=== PATIENT | female | born 1975 | race Caucasian/White ===

== ENCOUNTER 2017-11-21 16:25 | Emergency (ER) | payer BC ==
[2017-11-21 16:46] VITALS: O2SAT 98
[2017-11-21] MEDS ORDERED: OXYCODONE-ACETAMINOPHEN 10-325 PO STA (16:48)
[2017-11-21] MEDS ORDERED: OXYCODONE-ACETAMINOPHEN 10-325 ONE (16:53)
--- NOTE | 2017-11-21 16:57 | ERPHSYRPT ---
- History of Present Illness Time Seen by Provider: 11/21/17 16:38 Source: patient Patient Subjective Stated Complaint: PT REPORTS BILATERAL LOWER EXTREMITIES- STATES THAT SHE FEELS IT IS CELLULITIS-REPORTS OPENED AREA TO RIGHT LOWER EXTREMITY Triage Nursing Assessment: PT PINK WARM ET [id number] QUESTIONS [id number] AREA WITH DRAINAGE NOTED TO RIGHT LOWER LEG- PT AMBULATORY TO ED WITH NO DIFFICUTLY Physician History: CC: leg redness Hx: 42 y/o diabetic pt of KLEBER Ortiz. She was treated last month for cellulitis using keflex followed by bactrim. She had negative venous and arterial doppler ultrasounds. 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 Now has return of redness to both legs. The right leg pretibial area has blisters with clear drng. Last tetanus vaccine up to date. She has Type 2 diabetes. She tries to elevate feet when possible. Swelling is usually better in AM's. Occurred: days ago Lower Extremities Pain: leg: bilateral Allergies/Adverse Reactions: Penicillins Allergy (Verified 11/21/17 16:47) Hives acetaminophen [From Lortab] Adverse Reaction (Verified 11/21/17 16:47) Nausea and Vomiting hydrocodone [From Lortab] Adverse Reaction (Verified 11/21/17 16:47) Nausea and Vomiting lisinopril Adverse Reaction (Verified 11/21/17 16:47) Cough Home Medications: Furosemide 20 mg [Lasix 20 mg] 20 mg PO BID 07/05/17 [History] Gabapentin [Neurontin] 900 mg PO TID 07/05/17 [History] Insulin Glargine,Hum.rec.anlog [Lantus Solostar] 50 unit SQ 07/05/17 [History ] Losartan Potassium 50 mg [Cozaar 50 MG] 50 mg PO DAILY 07/05/17 [History] Metformin HCl 500 mg [Glucophage 500 MG] 1,000 mg PO BID 07/05/17 [History ] Nifedipine [Procardia Xl] 90 mg PO DAILY 07/05/17 [History] Rosuvastatin Calcium [Crestor] 5 mg PO DAILY 07/05/17 [History] Vitamin B Complex [Super B Complex] 1 each PO HS 07/05/17 [History] Sitagliptin Phosphate [Januvia] 100 mg PO DAILY 11/21/17 [History] Hx Tetanus, Diphtheria Vaccination/Date Given: Yes (2013) Hx Influenza Vaccination/Date Given: No Hx Pneumococcal Vaccination/Date Given: No Immunizations Up to Date: Yes - Review of Systems Constitutional: Malaise, No Fever, No Chills Eyes: No Symptoms Ears, Nose, & Throat: No Symptoms Respiratory: No Cough, No Dyspnea Cardiac: Edema, No Chest Pain Abdominal/Gastrointestinal: No Abdominal Pain Neurological: Parasthesia (neuropathy), No Focal Weakness All Other Systems: Reviewed and Negative - Past Medical History Pertinent Past Medical History: Yes Neurological History: Peripheral Neuropathy ENT History: No Pertinent History Cardiac History: Hypertension Respiratory History: No Pertinent History Endocrine Medical History: Diabetes Type II Musculoskeletal History: No Pertinent History GI Medical History: GERD, Gallbladder Disease History: Other Psycho-Social History: No Pertinent History Female Reproductive Disorders: No Pertinent History Other Medical History: neuropathy - Past Surgical History Past Surgical History: Yes Neuro Surgical History: No Pertinent History Cardiac: No Pertinent History Respiratory: No Pertinent History Gastrointestinal: Cholecystectomy Genitourinary: No Pertinent History Musculoskeletal: No Pertinent History Female Surgical History: Other Other Surgical History: uterine ablation - Social History Smoking Status: Never smoker Exposure to second hand smoke: No Drug Use: none Patient Lives Alone: No - Female History Hx Last Menstrual Period: ABLASION Hx Now: No - Nursing Vital Signs Nursing Vital Signs: Initial Vital Signs Temperature 98.3 F 11/21/17 16:35 Pulse Rate 85 11/21/17 16:35 Respiratory Rate 20 11/21/17 16:35 Blood Pressure 150/90 11/21/17 16:35 O2 Sat by Pulse Oximetry 98 11/21/17 16:35 Pain Scale Pain Intensity 2 - Physical Exam General Appearance: alert, obese, other (pleasant lady) Eyes, Ears, Nose, Throat Exam: moist mucous membranes Neck Exam: normal inspection, non-tender, supple Cardiovascular/Respiratory Exam: normal breath sounds, regular rate/rhythm Gastrointestinal/Abdominal Exam: non-tender, soft Neuro/Tendon Exam: normal motor functions Mental Status Exam: alert, oriented x 3, cooperative Skin Exam: warm, dry SpO2 Interpretation: normal SpO2: 98 Oxygen Delivery: Room Air Comments: Both legs have lower extremity edema. Some blistering more pronounced with pretibial. Both have venous stasis changes with brauny edema. No calf tenderness. Some erythema worse on right. Pedial pulses present. Procedures - Additional Procedures Progress: Bilateral unna boots applied. Tolerate well. - Course Nursing assessment & vital signs reviewed: Yes Ordered Tests: Active Orders 24 hr Category Date Time Status Other ED Treatment STAT Care 11/21/17 16:48 Active CBC W DIFF Stat Lab 11/21/17 17:00 Completed CMP Stat Lab 11/21/17 17:00 Completed CULTURE,WOUND Stat Lab 11/21/17 17:00 Received HCG QUALITATIVE,SERUM Stat Lab 11/21/17 17:00 Completed Lactic Acid Stat Lab 11/21/17 16:47 Results Manual Differential NC Stat Lab 11/21/17 17:00 Completed Medication Summary Discontinued Medications Generic Name Dose Route Start Last Admin Trade Name Freq PRN Reason Stop Dose Admin Oxycodone/Acetaminophen 1 tab 11/21/17 16:48 11/21/17 16:54 Oxycodone-Acetaminophen 10-325 PO 11/21/17 16:49 1 tab STAT STA Administration Oxycodone/Acetaminophen Confirm 11/21/17 16:53 Oxycodone-Acetaminophen 10-325 Administered 11/21/17 16:54 Dose 1 tab .ROUTE .STK-MED ONE Lab/Rad Data: Laboratory Result Diagrams 11/21/17 17:00 11/21/17 17:00 Laboratory Results 11/21/17 11/21/17 11/21/17 Range/Units 17:00 17:00 17:00 WBC 8.8 (4.0-10.5) K/mm3 RBC 4.82 (4.1-5.4) M/mm3 Hgb 13.2 (12.0-16.0) gm/dl Hct 41.0 (35-47) % MCV 85.1 (78-100) fl MCH 27.4 (26-32) pg MCHC 32.2 (32-36) g/dl RDW 14.9 H (11.5-14.0) % Plt Count 275 (150-450) K/mm3 MPV 10.1 H (6-9.5) fl Sodium 138 (136-145) mEq/L Potassium 3.8 (3.5-5.1) mEq/L Chloride 101 (98-107) mEq/L Carbon Dioxide 26.7 (21-32) mEq/L Anion Gap 14.1 (5-15) MEQ/L BUN 15 (9-20) mg/dL Creatinine 0.75 (0.55-1.30) mg/dl Estimated GFR > 60 ML/MIN Glucose 220 H (70-110) MG/DL Lactic Acid (0.4-2.0) Calcium 9.0 (8.5-10.1) mg/dL Total Bilirubin 0.40 (0.2-1.0) mg/dL AST 13 L (15-37) U/L ALT 17 (12-78) U/L Alkaline Phosphatase 67 (46-116) U/L Serum Total Protein 7.9 (6.4-8.2) gm/dL Albumin 3.4 (3.4-5.0) g/dL Serum , Qual NEGATIVE (Negative) 11/21/17 Range/Units 16:47 WBC (4.0-10.5) K/mm3 RBC (4.1-5.4) M/mm3 Hgb (12.0-16.0) gm/dl Hct (35-47) % MCV (78-100) fl MCH (26-32) pg MCHC (32-36) g/dl RDW (11.5-14.0) % Plt Count (150-450) K/mm3 MPV (6-9.5) fl Sodium (136-145) mEq/L Potassium (3.5-5.1) mEq/L Chloride (98-107) mEq/L Carbon Dioxide (21-32) mEq/L Anion Gap (5-15) MEQ/L BUN (9-20) mg/dL Creatinine (0.55-1.30) mg/dl Estimated GFR ML/MIN Glucose (70-110) MG/DL Lactic Acid 3.1 H (0.4-2.0) Calcium (8.5-10.1) mg/dL Total Bilirubin (0.2-1.0) mg/dL AST (15-37) U/L ALT (12-78) U/L Alkaline Phosphatase (46-116) U/L Serum Total Protein (6.4-8.2) gm/dL Albumin (3.4-5.0) g/dL Serum , Qual (Negative) - Progress Progress Note: 11/21/17 16:55 She venous stasis needing compression and edema treatment. Will apply unna boots , Rx cleocin. To follow up tomorrow in office. May need to stop the nifedipine as well. Instr given. Counseled pt/family regarding: lab results, diagnosis, need for follow-up - Departure Time of Disposition: 17:53 Departure Disposition: Home Clinical Impression: Bilateral lower leg cellulitis, Venous stasis dermatitis of both lower extremities, Type 2 diabetes mellitus Condition: Fair Critical Care Time: No Referrals: JENAE ORTIZ [Primary Care Provider] - Instructions: Dependent Edema (DC), Cellulitis (Skin Infection), Adult (DC) Additional Instructions: See KLEBER Ortiz or Dr Karimi tomorrow for recheck. Elevate legs. Rx cleocin. Rx percocet. Discuss changing your nifedipine. Watch salt intake. You will need compression treatments. Prescriptions: Oxycodone/APAP 5 mg/325 mg [Percocet Tablet 5/325Mg] 1 tab PO Q6H PRN PRN # 10 tablet MDD 4 PRN Reason: Pain Clindamycin HCl 1 cap PO QID #40 capsule Saccharomyces Boulardii [Florastor] 250 mg PO BID #20 capsule
[2017-11-21 17:09] LABS: Lactic Acid 3.1 (0.4-2.0)
[2017-11-21 17:10] LABS: Granulocyte Absolute (ANC) 5.74 (1.4-6.9); Hemoglobin 13.2 gm/dl (12.0-16.0); Mean Cell Volume 85.1 fl (78-100); Mean Corpuscular Hemoglobin 27.4 pg (26-32); Mean Corpuscular Hgb Concent. 32.2 g/dl (32-36); Mean Platelet Volume 10.1 fl (6-9.5); Platelet Count 275 K/mm3 (150-450); Red Blood Count 4.82 M/mm3 (4.1-5.4); Red Cell Distribution Width 14.9 % (11.5-14.0); White Blood Count 8.8 K/mm3 (4.0-10.5)
[2017-11-21 17:29] VITALS: BP 121/59; PULSE 76
[2017-11-21 17:46] LABS: ALBUMIN 3.4 g/dL (3.4-5.0); ALKALINE PHOSPHATASE 67 U/L (46-116); ANION GAP 14.1 MEQ/L (5-15); BLOOD UREA NITROGEN 15 mg/dL (9-20); CHLORIDE 101 mEq/L (98-107); Carbon Dioxide 26.7 mEq/L (21-32); Creatinine 1 0.75 mg/dl (0.55-1.30); EST GLOMERULAR FILTRATION RATE > 60 ML/MIN; Glucose 220 MG/DL (70-110); Potassium 3.8 mEq/L (3.5-5.1); SGOT/AST 13 U/L (15-37); SGPT/ALT 17 U/L (12-78); SODIUM 138 mEq/L (136-145); Total Protein 7.9 gm/dL (6.4-8.2)
[2017-11-22 01:44] LABS: Eosinophil 1 % (0.00-3.0); Lymphocytes 20 % (24-44); Monocyte 5 % (0.0-12.0); Neutrophils 74 % (36.0-66.0); Platelet Estimate NORMAL (NORMAL); Total Cells Counted 100
== END 2017-11-21 18:10 | disposition home or self-care (01) ==
LOC: ED 16:25
DX: L03.116 Cellulitis of left lower limb (principal); L03.115 Cellulitis of right lower limb; I87.2 Venous insufficiency (chronic) (peripheral); E11.9 Type 2 diabetes mellitus without complications; Z79.899 Other long term (current) drug therapy
CPT/HCPCS: 36415; 80053; 83605; 84703; 85025; 87070; 87077; 87186; 99283; 99284; A9270-GY

== ENCOUNTER 2018-05-22 18:10 | Emergency (ER) | payer BC, SELFPAY ==
[2018-05-22 18:31] LABS: Lactic Acid 3.9 (0.4-2.0)
[2018-05-22] MEDS ORDERED: Sodium Chloride 0.9% 1000 ML 1,000 ML ONE ×2 (18:32→20:56)
[2018-05-22] MEDS: Sodium Chloride 0.9% 1000 ML 1,000 ML IV STA ×2 (18:33→20:57)
[2018-05-22 18:38] LABS: BASOPHIL % 0.8 % (0.0-0.4); Basophil (Absolute #) 0.09 (0-0.4); Eosinophil % 2.5 % (0.00-5.0); Eosinophil (Absolute #) 0.27 (0-0.5); Granulocyte Absolute (ANC) 6.77 (1.4-6.9); Granulocytes % 64.1 % (36.0-66.0); Hematocrit 39.7 % (35-47); Hemoglobin 13.2 gm/dl (12.0-16.0); Lymphocyte (Absolute #) 2.63 (1.0-4.6); Lymphocytes % 24.8 % (24.0-44.0); Mean Cell Volume 84.6 fl (78-100); Mean Corpuscular Hemoglobin 28.1 pg (26-32); Mean Corpuscular Hgb Concent. 33.2 g/dl (32-36); Mean Platelet Volume 9.9 fl (6-9.5); Monocyte (Absolute #) 0.83 (0.0-1.3); Monocytes % 7.8 % (0.0-12.0); Platelet Count 301 K/mm3 (150-450); Red Blood Count 4.69 M/mm3 (4.1-5.4); Red Cell Distribution Width 15.3 % (11.5-14.0); White Blood Count 10.6 K/mm3 (4.0-10.5)
--- NOTE | 2018-05-22 18:49 | ERPHSYRPT ---
- History of Present Illness Historian: patient Exam Limitations: no limitations Patient Subjective Stated Complaint: pt here for abd pain for a wek after lifting 24 pack of water Triage Nursing Assessment: pt alert, walked in, resp easy, skin w/d/p. abd soft. Timing/Duration: week(s) (one week ago) Activities at Onset: none Quality: aching Abdominal Pain Onset Location: suprapubic Pain Radiation: no radiation Severity of Pain-Max: moderate Severity of Pain-Current: moderate Modifying Factors: Improves With: nothing Associated Symptoms: denies symptoms Hx Tetanus, Diphtheria Vaccination/Date Given: Yes (2013) Hx Influenza Vaccination/Date Given: No Hx Pneumococcal Vaccination/Date Given: No Immunizations Up to Date: Yes <QUENTIN ROSALES - Last Filed: 05/22/18 18:59> <SWATI ARDON - Last Filed: 05/22/18 22:01> - History of Present Illness Time Seen by Provider: 05/22/18 18:47 Physician History: 43-year-old female came to the emergency room with complaining of lower abdominal pain which started approximately 5 days ago while she was speaking of 24 packs of water bottles. Patient pain got worse today, so she came to the emergency room. Patient denies any nausea, vomiting, diarrhea, constipation or any urinary trouble, or fever or chills. Patient is diabetic, insulin-requiring , as well as patient is also taking blood pressure medication for her high blood pressure. She denies this type of abdominal pain before. (QUENTIN ROSALES ) Allergies/Adverse Reactions: codeine Allergy (Verified 05/22/18 18:21) Penicillins Allergy (Verified 11/21/17 16:47) Hives acetaminophen [From Lortab] Adverse Reaction (Verified 11/21/17 16:47) Nausea and Vomiting hydrocodone [From Lortab] Adverse Reaction (Verified 11/21/17 16:47) Nausea and Vomiting lisinopril Adverse Reaction (Verified 11/21/17 16:47) Cough Home Medications: Furosemide 20 mg [Lasix 20 mg] 20 mg PO BID 07/05/17 [History] Gabapentin [Neurontin] 900 mg PO TID 07/05/17 [History] Insulin Glargine,Hum.rec.anlog [Lantus Solostar] 50 unit SQ HS 07/05/17 [History ] Losartan Potassium 50 mg [Cozaar 50 MG] 50 mg PO DAILY 07/05/17 [History] Metformin HCl 500 mg [Glucophage 500 MG] 1,000 mg PO BID 07/05/17 [History ] Nifedipine [Procardia Xl] 90 mg PO DAILY 07/05/17 [History] Rosuvastatin Calcium [Crestor] 5 mg PO DAILY 07/05/17 [History] Vitamin B Complex [Super B Complex] 1 each PO HS 07/05/17 [History] Sitagliptin Phosphate [Januvia] 100 mg PO DAILY 11/21/17 [History] - Review of Systems Constitutional: No Fever, No Chills Eyes: No Symptoms Ears, Nose, & Throat: No Symptoms Respiratory: No Cough, No Dyspnea Cardiac: No Chest Pain, No Edema, No Syncope Abdominal/Gastrointestinal: No Abdominal Pain, No Nausea, No Vomiting, No Diarrhea Genitourinary Symptoms: No Dysuria Musculoskeletal: No Back Pain, No Neck Pain Skin: No Rash Neurological: No Dizziness, No Focal Weakness, No Sensory Changes Psychological: No Symptoms Endocrine: No Symptoms All Other Systems: Reviewed and Negative <CONNIE,QUENTIN - Last Filed: 05/22/18 18:59> - Past Medical History Pertinent Past Medical History: Yes Neurological History: Peripheral Neuropathy ENT History: No Pertinent History Cardiac History: Hypertension Respiratory History: No Pertinent History Endocrine Medical History: Diabetes Type II Musculoskeletal History: No Pertinent History GI Medical History: GERD, Gallbladder Disease History: Other Psycho-Social History: No Pertinent History Female Reproductive Disorders: No Pertinent History Other Medical History: neuropathy - Past Surgical History Past Surgical History: Yes Neuro Surgical History: No Pertinent History Cardiac: No Pertinent History Respiratory: No Pertinent History Gastrointestinal: Cholecystectomy Genitourinary: No Pertinent History Musculoskeletal: No Pertinent History Female Surgical History: Other Other Surgical History: uterine ablation - Social History Smoking Status: Never smoker Exposure to second hand smoke: Yes Drug Use: none Patient Lives Alone: No - Female History Hx Last Menstrual Period: post Hx Now: No <CONNIE,QUENTIN - Last Filed: 05/22/18 18:59> - Physical Exam General Appearance: no apparent distress, alert Eye Exam: PERRL/EOMI, eyes nml inspection Ears, Nose, Throat Exam: normal ENT inspection, pharynx normal, moist mucous membranes Neck Exam: normal inspection, non-tender, supple, full range of motion Respiratory Exam: normal breath sounds, lungs clear, No respiratory distress Cardiovascular Exam: regular rate/rhythm, normal heart sounds Gastrointestinal/Abdomen Exam: soft, No tenderness, No mass Back Exam: normal inspection, normal range of motion, No CVA tenderness, No vertebral tenderness Extremity Exam: normal inspection, normal range of motion, pelvis stable Neurologic Exam: alert, oriented x 3, cooperative, normal mood/affect, nml cerebellar function, sensation nml, No motor deficits Skin Exam: normal color, warm, dry SpO2: 97 Oxygen Delivery: Room Air <CONNIE,QUENTIN - Last Filed: 05/22/18 18:59> - Nursing Vital Signs Nursing Vital Signs: Initial Vital Signs Temperature 97.0 F 05/22/18 18:16 Pulse Rate 114 H 05/22/18 18:16 Respiratory Rate 16 05/22/18 18:16 Blood Pressure 128/72 05/22/18 18:16 O2 Sat by Pulse Oximetry 97 05/22/18 18:16 Pain Scale Pain Intensity 7 - Course Nursing assessment & vital signs reviewed: Yes <CONNIE,QUENTIN - Last Filed: 05/22/18 18:59> Ordered Tests: Active Orders 24 hr Category Date Time Status ABDOMEN AND PELVIS W CONTRAST [CT] Stat Exams 05/22/18 19:39 Taken AMYLASE Stat Lab 05/22/18 18:20 Completed CBC W DIFF Stat Lab 05/22/18 18:20 Completed CMP Stat Lab 05/22/18 18:20 Completed Lactic Acid Stat Lab 05/22/18 18:26 Completed Lactic Acid Stat Lab 05/22/18 20:36 Results UA W/RFX UR CULTURE Stat Lab 05/22/18 18:20 Uncollected Medication Summary Discontinued Medications Generic Name Dose Route Start Last Admin Trade Name Freq PRN Reason Stop Dose Admin Ciprofloxacin 500 mg 05/22/18 21:54 Cipro 500 Mg PO 05/22/18 21:55 STAT ONE Sodium Chloride 1,000 mls @ 999 mls/hr 05/22/18 18:20 05/22/18 19:52 Sodium Chloride 0.9% 1000 Ml IV 05/22/18 19:20 Infused .Q1H1M STA Infusion Sodium Chloride Confirm 05/22/18 18:32 Sodium Chloride 0.9% 1000 Ml Administered 05/22/18 18:33 Dose 1,000 mls @ ud .ROUTE .STK-MED ONE Sodium Chloride 1,000 mls @ 999 mls/hr 05/22/18 20:46 05/22/18 20:57 Sodium Chloride 0.9% 1000 Ml IV 05/22/18 21:46 999 mls/hr .Q1H1M STA Administration Sodium Chloride Confirm 05/22/18 20:56 Sodium Chloride 0.9% 1000 Ml Administered 05/22/18 20:57 Dose 1,000 mls @ ud .ROUTE .STK-MED ONE Metronidazole 500 mg 05/22/18 21:54 Flagyl 500 Mg PO 05/22/18 21:55 STAT ONE Lab/Rad Data: Laboratory Result Diagrams 05/22/18 18:20 05/22/18 18:20 Laboratory Results 05/22/18 05/22/18 05/22/18 Range/Units 20:36 18:26 18:20 WBC (4.0-10.5) K/mm3 RBC (4.1-5.4) M/mm3 Hgb (12.0-16.0) gm/dl Hct (35-47) % MCV (78-100) fl MCH (26-32) pg MCHC (32-36) g/dl RDW (11.5-14.0) % Plt Count (150-450) K/mm3 MPV (6-9.5) fl Gran % (36.0-66.0) % Eos # (Auto) (0-0.5) Absolute Lymphs (auto) (1.0-4.6) Absolute Monos (auto) (0.0-1.3) Lymphocytes % (24.0-44.0) % Monocytes % (0.0-12.0) % Eosinophils % (0.00-5.0) % Basophils % (0.0-0.4) % Absolute Granulocytes (1.4-6.9) Basophils # (0-0.4) Sodium 137 (137-145) mmol/L Potassium 3.9 (3.5-5.1) mmol/L Chloride 98 (98-107) mmol/L Carbon Dioxide 25 (22-30) mmol/L Anion Gap 18.4 H (5-15) MEQ/L BUN 11 (7-17) mg/dL Creatinine 0.64 (0.52-1.04) mg/dL Estimated GFR > 60.0 ML/MIN Glucose 408 H (74-106) mg/dL Lactic Acid 3.0 H 3.9 H (0.4-2.0) Calcium 9.8 (8.4-10.2) mg/dL Total Bilirubin 0.40 (0.2-1.3) mg/dL AST 23 (14-36) U/L ALT 34 (0-35) U/L Alkaline Phosphatase 114 (38-126) U/L Serum Total Protein 7.9 (6.3-8.2) g/dL Albumin 4.5 (3.5-5.0) g/dL Amylase 41 (30-110) U/L 05/22/18 Range/Units 18:20 WBC 10.6 H (4.0-10.5) K/mm3 RBC 4.69 (4.1-5.4) M/mm3 Hgb 13.2 (12.0-16.0) gm/dl Hct 39.7 (35-47) % MCV 84.6 (78-100) fl MCH 28.1 (26-32) pg MCHC 33.2 (32-36) g/dl RDW 15.3 H (11.5-14.0) % Plt Count 301 (150-450) K/mm3 MPV 9.9 H (6-9.5) fl Gran % 64.1 (36.0-66.0) % Eos # (Auto) 0.27 (0-0.5) Absolute Lymphs (auto) 2.63 (1.0-4.6) Absolute Monos (auto) 0.83 (0.0-1.3) Lymphocytes % 24.8 (24.0-44.0) % Monocytes % 7.8 (0.0-12.0) % Eosinophils % 2.5 (0.00-5.0) % Basophils % 0.8 (0.0-0.4) % Absolute Granulocytes 6.77 (1.4-6.9) Basophils # 0.09 (0-0.4) Sodium (137-145) mmol/L Potassium (3.5-5.1) mmol/L Chloride (98-107) mmol/L Carbon Dioxide (22-30) mmol/L Anion Gap (5-15) MEQ/L BUN (7-17) mg/dL Creatinine (0.52-1.04) mg/dL Estimated GFR ML/MIN Glucose (74-106) mg/dL Lactic Acid (0.4-2.0) Calcium (8.4-10.2) mg/dL Total Bilirubin (0.2-1.3) mg/dL AST (14-36) U/L ALT (0-35) U/L Alkaline Phosphatase (38-126) U/L Serum Total Protein (6.3-8.2) g/dL Albumin (3.5-5.0) g/dL Amylase (30-110) U/L <QUENTIN ROSALES - Last Filed: 05/22/18 18:59> - Progress Progress: improved, re-examined Discussed with : Sachi Counseled pt/family regarding: lab results, diagnosis, need for follow-up, rad results <SWATI ARDON - Last Filed: 05/22/18 22:01> - Progress Progress Note: 05/22/18 21:56 PT STATES ABD PAIN STILL PRESENT BUT IMPROVED. I EVALUATED HER LEGS AND SHE HAS BILAT CHRONIC VENOUS STASIS DZ WITH MILD REDNESS. WILL GIVE PT RX FOR CIPRO AND FLAGYL TO COVER BOTH HER LEG ISSUES AND HER ABD PAIN WITH ASSOCIATED MILDLY ELEVATED WBC AND LACTIC ACID LEVELS (SWATI ARDON) <QUENTIN ROSALES - Last Filed: 05/22/18 18:59> - Departure Time of Disposition: 21:58 Departure Disposition: Home Critical Care Time: No <SWATI ARDON - Last Filed: 05/22/18 22:01> - Departure Clinical Impression: Abdominal pain, Venous stasis of both lower extremities, Leukocytosis, unspecified Condition: Stable Referrals: VAISHALI HINOJOSA [Primary Care Provider] - Additional Instructions: DRINK PLENTY OF FLUIDS. FOLLOW UP WITH DR. HINOJOSA TOMORROW FOR FURTHER MANAGEMENT Prescriptions: Ciprofloxacin [Cipro 500 MG] 500 mg PO BID #14 tablet Metronidazole 500 mg [Flagyl 500 MG] 500 mg PO TID #21 tablet
[2018-05-22 18:53] LABS: ALBUMIN 4.5 g/dL (3.5-5.0); ALKALINE PHOSPHATASE 114 U/L (38-126); AMYLASE 41 U/L (30-110); ANION GAP 18.4 MEQ/L (5-15); BLOOD UREA NITROGEN 11 mg/dL (7-17); CHLORIDE 98 mmol/L (98-107); Calcium 9.8 mg/dL (8.4-10.2); Carbon Dioxide 25 mmol/L (22-30); Creatinine 1 0.64 mg/dL (0.52-1.04); Glucose 408 mg/dL (74-106); Potassium 3.9 mmol/L (3.5-5.1); SGOT/AST 23 U/L (14-36); SODIUM 137 mmol/L (137-145); Total Protein 7.9 g/dL (6.3-8.2)
[2018-05-22 19:00] LABS: SGPT/ALT 34 U/L (0-35)
[2018-05-22] MEDS ORDERED: Cipro 500 MG ONE (21:57)
[2018-05-22] MEDS ORDERED: Flagyl 500 MG ONE (21:57)
[2018-05-22] MEDS: Cipro 500 MG PO ONE (21:58)
[2018-05-22] MEDS: Flagyl 500 MG PO ONE (21:58)
[2018-05-22 22:08] VITALS: BP 128/77; PULSE 90; O2SAT 94
--- NOTE | 2018-05-23 08:49 | XRAY ---
Indication: Lower abdominal pain and elevated WBC. Multiple contiguous axial images obtained through the abdomen and pelvis using 80 cc Isovue 370 contrast only. Comparison: None Lung bases are clear. Heart is not enlarged. Stomach is distended with food. Noncontrasted stomach and bowel loops appear nonobstructed. Normal appendix. Mild diffuse scattered colonic fecal debris throughout. There are bilateral Essure contraceptive devices. 2.4 cm right ovary cyst. No free fluid/air. Endometrial cavity of the uterus is fluid-filled with anatomic variant for septate uterus. Mild fatty hepatomegaly measuring 20 cm. Spleen is also enlarged measuring 14 cm in greatest axial dimension. Previous cholecystectomy. 1.4 cm left renal cortical cyst. Remaining liver, pancreas, spleen, adrenal glands, kidneys, ureters, bladder, uterus, and aorta appear unremarkable. Small centimeter/subcentimeter periaortic nodes none pathologically enlarged. Osseous structures intact. Moderate-sized fatty umbilical hernia. Impression: 1. Endometrial cavity fluid, septate uterus, and dominant right ovary cyst. Pelvic sonogram may yield further information if clinically warranted. 2. Fatty liver and hepatosplenomegaly. 3. Fecal stasis without obstruction. 4. Left renal cyst and fatty umbilical hernia. Comment: Preliminary interpretation was made by [facility]. No critical discrepancy. CT DI 22.92
== END 2018-05-22 22:10 | disposition home or self-care (01) ==
LOC: ED 18:10
DX: R10.30 Lower abdominal pain, unspecified (principal); I87.8 Other specified disorders of veins; D72.829 Elevated white blood cell count, unspecified; G62.9 Polyneuropathy, unspecified; I10 Essential (primary) hypertension; E11.9 Type 2 diabetes mellitus without complications; Z79.4 Long term (current) use of insulin; K21.9 Gastro-esophageal reflux disease without esophagitis; Z79.899 Other long term (current) drug therapy; X50.0XXA Overexertion from strenuous movement or load, initial encounter
CPT/HCPCS: 36000; 36415; 74177; 80053; 82150; 83605; 85025; 96360; 96361; 99284; A9270-GY

== ENCOUNTER 2019-07-10 19:14 | Emergency (ER) | payer BC ==
[2019-07-10 19:37] VITALS: O2SAT 98
--- NOTE | 2019-07-10 19:46 | ERPHSYRPT ---
- History of Present Illness Time Seen by Provider: 07/10/19 19:46 Source: patient Exam Limitations: no limitations Method of Injury: other (ingrown toenail, right great toe) Occurred: last week Quality: constant Severity of Pain-Max: mild Severity of Pain-Current: mild Lower Extremities Pain: 1st toe: right (mild pain) Modifying Factors: Improves With: movement (worsens pain) Associated Symptoms: none Allergies/Adverse Reactions: codeine Allergy (Verified 05/22/18 18:21) Penicillins Allergy (Verified 11/21/17 16:47) Hives hydrocodone [From Lortab] Adverse Reaction (Verified 11/21/17 16:47) Nausea and Vomiting lisinopril Adverse Reaction (Verified 11/21/17 16:47) Cough Home Medications: Furosemide 20 mg [Lasix 20 mg] 40 mg PO BID 07/05/17 [History] Gabapentin [Neurontin] 900 mg PO TID 07/05/17 [History] Insulin Glargine,Hum.rec.anlog [Lantus Solostar] 50 unit SQ HS 07/05/17 [History ] Losartan Potassium 50 mg [Cozaar 50 MG] 50 mg PO DAILY 07/05/17 [History] Metformin HCl 500 mg [Glucophage 500 MG] 1,000 mg PO BID 07/05/17 [History ] Nifedipine [Procardia Xl] 30 mg PO DAILY 07/05/17 [History] Rosuvastatin Calcium [Crestor] 5 mg PO DAILY 07/05/17 [History] Vitamin B Complex [Super B Complex] 1 each PO HS 07/05/17 [History] Sitagliptin Phosphate [Januvia] 100 mg PO DAILY 11/21/17 [History] Amitriptyline HCl 25 mg [Elavil 25 mg] 25 mg PO HS 07/10/19 [History] Hx Tetanus, Diphtheria Vaccination/Date Given: Yes (2013) Hx Influenza Vaccination/Date Given: No Hx Pneumococcal Vaccination/Date Given: No - Review of Systems Constitutional: No Symptoms, No Fever, No Chills Eyes: No Symptoms Ears, Nose, & Throat: No Symptoms Respiratory: No Symptoms, No Cough, No Dyspnea Cardiac: No Symptoms, No Chest Pain, No Edema, No Syncope Abdominal/Gastrointestinal: No Symptoms, No Abdominal Pain, No Nausea, No Vomiting, No Diarrhea Genitourinary Symptoms: No Symptoms, No Dysuria Musculoskeletal: Other (pain in area of right great toenail, some d/c), No Back Pain, No Neck Pain Skin: Cellulitis (very mild, area of right great toe), No Rash Neurological: No Symptoms, No Dizziness, No Focal Weakness, No Sensory Changes Psychological: No Symptoms Endocrine: No Symptoms All Other Systems: Reviewed and Negative - Past Medical History Pertinent Past Medical History: Yes Neurological History: Peripheral Neuropathy ENT History: No Pertinent History Cardiac History: Hypertension Respiratory History: No Pertinent History Endocrine Medical History: Diabetes Type II Musculoskeletal History: No Pertinent History GI Medical History: GERD, Gallbladder Disease History: Other Psycho-Social History: No Pertinent History Female Reproductive Disorders: No Pertinent History Other Medical History: neuropathy - Past Surgical History Past Surgical History: Yes Neuro Surgical History: No Pertinent History Cardiac: No Pertinent History Respiratory: No Pertinent History Gastrointestinal: Cholecystectomy Genitourinary: No Pertinent History Musculoskeletal: No Pertinent History Female Surgical History: Other Other Surgical History: uterine ablation - Social History Smoking Status: Never smoker Exposure to second hand smoke: Yes Drug Use: none Patient Lives Alone: No - Nursing Vital Signs Nursing Vital Signs: Initial Vital Signs Temperature 99.2 F 07/10/19 19:14 Pulse Rate 76 07/10/19 19:14 Respiratory Rate 16 07/10/19 19:14 Blood Pressure 189/92 07/10/19 19:14 O2 Sat by Pulse Oximetry 98 07/10/19 19:14 Pain Scale Pain Intensity 7 - Physical Exam General Appearance: no apparent distress, obese Eyes, Ears, Nose, Throat Exam: normal ENT inspection Neck Exam: normal inspection, non-tender Cardiovascular/Respiratory Exam: chest non-tender, normal breath sounds Gastrointestinal/Abdominal Exam: non-tender, soft Back Exam: other (N/E) Foot Exam: right foot: non-tender (right great toe mild TTP), bilateral foot: normal inspection (fungal changes in nails), normal range of motion, no evidence of injury, soft tissue tenderness (mild, right great toe, no d/c) Neuro/Tendon Exam: normal sensation, normal motor functions Mental Status Exam: alert, oriented x 3, cooperative Skin Exam: normal color, warm SpO2 Interpretation: normal SpO2: 98 O2 Delivery: Room Air Ordered Tests: Medication Summary Discontinued Medications Generic Name Dose Route Start Last Admin Trade Name Mirza PRN Reason Stop Dose Admin Cephalexin HCl 500 mg 07/10/19 20:11 07/10/19 20:18 Keflex 500 Mg PO 07/10/19 20:12 500 mg STAT ONE Administration Cephalexin HCl Confirm 07/10/19 20:17 Keflex 500 Mg Administered 07/10/19 20:18 Dose 500 mg .ROUTE .STK-MED ONE Trimethoprim/Sulfamethoxazole 1 tab 07/10/19 20:11 07/10/19 20:18 Bactrim Ds Tablet PO 07/10/19 20:12 1 tab STAT STA Administration Trimethoprim/Sulfamethoxazole Confirm 07/10/19 20:17 Bactrim Ds Tablet Administered 07/10/19 20:18 Dose 1 tab PO .STK-MED ONE - Progress Progress: unchanged Counseled pt/family regarding: diagnosis, need for follow-up - Departure Departure Disposition: Home Clinical Impression: Ingrowing toenail with infection Condition: Stable Critical Care Time: No Referrals: VAISHALI HINOJOSA [Primary Care Provider] - As Directed (car oiler) Instructions: Ingrown Toenail (DC) Additional Instructions: Apply warm compresses or soaks to infected toe when able. Suggest that you see a car oiler. Plan of Treatment: Rx abx, suggest see car oiler. Prescriptions: Cephalexin Mh 500 mg [Keflex 500 mg] 500 mg PO TID #30 capsule Fluconazole [Diflucan] 200 mg PO DAILY #5 tablet Mupirocin [Bactroban OINTMENT] 22 gm TP TID #1 tube Sulfamethoxazole/Trimethoprim [Bactrim Ds Tablet] 1 each PO BID #20 tablet
[2019-07-10] MEDS ORDERED: BACTRIM DS TABLET PO STA (20:11)
[2019-07-10] MEDS ORDERED: KEFLEX 500 MG PO ONE (20:11)
[2019-07-10] MEDS ORDERED: BACTRIM DS TABLET PO ONE (20:17)
[2019-07-10] MEDS ORDERED: KEFLEX 500 MG ONE (20:17)
[2019-07-10 20:32] VITALS: BP 167/91; PULSE 88
== END 2019-07-10 20:43 | disposition home or self-care (01) ==
LOC: ED 19:14
DX: L60.0 Ingrowing nail (principal); L03.031 Cellulitis of right toe; E11.9 Type 2 diabetes mellitus without complications; G62.9 Polyneuropathy, unspecified
CPT/HCPCS: 99283; A9270-GY

== ENCOUNTER 2019-10-25 19:14 | Emergency (ER) | payer BC, SELFPAY ==
--- NOTE | 2019-10-25 19:24 | ERPHSYRPT ---
- History of Present Illness Time Seen by Provider: 10/25/19 19:24 Source: patient Exam Limitations: no limitations Physician History: 44 y/o white female presents with 2 weeks of coughing, headache and fever. she has a sore throat. pt feels fatigued. sx not improved. no n/v/d. no abd pain. no cp. 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 Associated Symptoms: denies symptoms, confusion, muscle aches, sore throat Allergies/Adverse Reactions: codeine Allergy (Verified 05/22/18 18:21) Penicillins Allergy (Verified 11/21/17 16:47) Hives hydrocodone [From Lortab] Adverse Reaction (Verified 11/21/17 16:47) Nausea and Vomiting lisinopril Adverse Reaction (Verified 11/21/17 16:47) Cough Home Medications: Furosemide 20 mg [Lasix 20 mg] 40 mg PO BID 07/05/17 [History] Insulin Glargine,Hum.rec.anlog [Lantus Solostar] 50 unit SQ HS 07/05/17 [History ] Losartan Potassium 50 mg [Cozaar 50 MG] 50 mg PO DAILY 07/05/17 [History] Metformin HCl 500 mg [Glucophage 500 MG] 1,000 mg PO BID 07/05/17 [History ] Nifedipine [Procardia Xl] 30 mg PO DAILY 07/05/17 [History] Rosuvastatin Calcium [Crestor] 5 mg PO DAILY 07/05/17 [History] Vitamin B Complex [Super B Complex] 1 each PO HS 07/05/17 [History] Sitagliptin Phosphate [Januvia] 100 mg PO DAILY 11/21/17 [History] Amitriptyline HCl 25 mg [Elavil 25 mg] 25 mg PO HS 07/10/19 [History] Gabapentin Enacarbil [Horizant] 1,200 mg PO DAILY 10/25/19 [History] Hx Tetanus, Diphtheria Vaccination/Date Given: Yes (2013) Hx Influenza Vaccination/Date Given: No Hx Pneumococcal Vaccination/Date Given: No - Review of Systems Constitutional: Fever, Fatigue Eyes: No Symptoms Ears, Nose, & Throat: Throat Pain Respiratory: Cough Cardiac: No Symptoms Abdominal/Gastrointestinal: No Symptoms Genitourinary Symptoms: No Symptoms Musculoskeletal: No Symptoms Skin: No Symptoms Neurological: No Symptoms Psychological: No Symptoms Endocrine: No Symptoms Hematologic/Lymphatic: No Symptoms Immunological/Allergic: No Symptoms All Other Systems: Reviewed and Negative - Past Medical History Pertinent Past Medical History: Yes Neurological History: Peripheral Neuropathy ENT History: No Pertinent History Cardiac History: Hypertension Respiratory History: No Pertinent History Endocrine Medical History: Diabetes Type II Musculoskeletal History: No Pertinent History GI Medical History: GERD, Gallbladder Disease History: Other Psycho-Social History: No Pertinent History Female Reproductive Disorders: No Pertinent History Other Medical History: neuropathy - Past Surgical History Past Surgical History: Yes Neuro Surgical History: No Pertinent History Cardiac: No Pertinent History Respiratory: No Pertinent History Gastrointestinal: Cholecystectomy Genitourinary: No Pertinent History Musculoskeletal: No Pertinent History Female Surgical History: Other Other Surgical History: uterine ablation - Social History Smoking Status: Never smoker Exposure to second hand smoke: Yes Drug Use: none Patient Lives Alone: No - Nursing Vital Signs Nursing Vital Signs: Initial Vital Signs Temperature 99.0 F 10/25/19 19:24 Pulse Rate 50 L 10/25/19 19:24 Respiratory Rate 18 10/25/19 19:24 Blood Pressure 167/61 10/25/19 19:24 O2 Sat by Pulse Oximetry 95 10/25/19 19:24 Pain Scale Pain Intensity 6 - Physical Exam General Appearance: no apparent distress, alert, anxiety Eye Exam: PERRL/EOMI, eyes nml inspection ENT Exam: normal ENT inspection, TMs normal, pharynx normal Neck Exam: normal inspection, non-tender, supple, full range of motion Respiratory Exam: normal breath sounds, lungs clear, no respiratory distress, no accessory muscle use, No chest non-tender Cardiovascular/Chest Exam: normal heart sounds, regular rate/rhythm, normal peripheral pulses Gastrointestinal/Abdominal Exam: soft, non tender, no distention, no mass, no guarding, normal bowel sounds Pelvic Exam: not done Rectal Exam: not done Extremity Exam: non-tender, normal range of motion, normal inspection Neurologic Exam: alert, oriented x 3, cooperative, 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 pt states her rxn to codeine and hydrocodone tabs is projectile vomiting. pt has had keflex in past without any issues. pt also states tessalon perles work well for her. Counseled pt/family regarding: diagnosis, need for follow-up, rad results - Departure Departure Disposition: Home Clinical Impression: Bronchitis Condition: Stable Critical Care Time: No Referrals: VAISHALI HINOJOSA [Primary Care Provider] - Additional Instructions: drink plenty of fluids. follow up with primary doctor for persistent symptoms Prescriptions: Albuterol 8 gm Mdi Hfa [Ventolin Hfa MDI] 8 gm IH Q4H #1 hfa.aer.ad Azithromycin 250 mg [Zithromax 250 MG TABLET] 250 mg PO ZPACK #6 tablet Benzonatate [Tessalon Perle] 200 mg PO TID #12 capsule Prednisone 10 mg [Deltasone 10 mg] 10 mg PO TID #12 tablet
[2019-10-25] MEDS ORDERED: solu-MEDROL 125 MG IM ONE (20:34)
[2019-10-25] MEDS ORDERED: Diflucan 100 MG PO ONE (20:35)
[2019-10-25] MEDS ORDERED: Rocephin 1000 MG INJ IM ONE (20:35)
[2019-10-25] MEDS ORDERED: Tessalon Perles 100 MG PO ONE (20:36)
[2019-10-25] MEDS ORDERED: solu-MEDROL 125 MG ONE (20:41)
[2019-10-25] MEDS ORDERED: Rocephin 1000 MG INJ ONE (20:41)
[2019-10-25 21:06] VITALS: BP 147/74; PULSE 69; O2SAT 98
--- NOTE | 2019-10-26 08:47 | XRAY ---
Indication: Fever and cough. Comparison: None Portable chest slightly underinflated and clear. Remaining heart and bony thorax normal.
== END 2019-10-25 21:11 | disposition home or self-care (01) ==
LOC: ED 19:14
DX: J40 Bronchitis, not specified as acute or chronic (principal)
CPT/HCPCS: 71045; 96372; 99284; J0696; J2930; A9270-GY

== ENCOUNTER 2020-06-02 01:14 | Emergency (ER) | payer BC ==
[~2020-06-02 01:14] MED LIST: Magnesium Sulfate 1 GM/2 ML VIAL ONE; NEXTERONE 360 MG/200 ML BAG 360 MG/200 ML PLAST..BAG IV ONE; Sodium Bicarbonate 50 MEQ/50 ML VIAL IV ONE
[2020-06-02] MEDS ORDERED: Propofol 1000 mg/100 ml Bottle IV ONE (01:15)
[2020-06-02] MEDS ORDERED: Cordarone 150 MG/3 ML Injection IV ONE (01:15)
[2020-06-02] MEDS ORDERED: Sodium Chloride 0.9% 1000 ML 1,000 ML ONE ×3 (01:16→03:23)
[2020-06-02] MEDS ORDERED: EPINEPHRINE 1MG/ML AMP ONE ×2 (01:16→01:25)
[2020-06-02] MEDS ORDERED: Sodium Chloride 0.9% 250 ML 250 ML IV ONE (01:25)
--- NOTE | 2020-06-02 01:39 | ERPHSYRPT ---
- Events Time Seen by Provider: 06/02/20 01:14 Reason for Code Rapid: full arrest, unresponsive Pre-Event Complaints: found unresponsive CPR initiated prior to MD arrival: Yes Physician Note: EMS brought in female patient who was found on and someone's driveway for almost 10 to 15 minutes before EMS was there. She had pulseless arrest, she is given epi x2 and patient went into V. fib and was shocked 4 times prior to arrival and also given one-time bicarb. Patient on presentation in the ER was pulseless. She got couple more rounds of epi and bicarb and was found given V. fib, given magnesium along with amiodarone and was shocked twice in the ER as well. Patient has return of spontaneous circulation with heart rate and 80s. She lost pulse twice again and regained with CPR and epi. She is currently on amiodarone and epi drip. Procedures - Intubation Intubation Indications: cardiac arrest Intubation Method: glidescope Tube Size (cm): 7.5 Endotracheal Tube Confirmation: bilateral breath sounds, positive end tidal CO2 Intubation Complications: no complications Performed By: ED Physician Post Intubation Xray: Yes Critical Care Time - Critical Care Note Total Time (mins): 60 - Progress Progress: stabilized Progress Note: 06/02/20 01:39 Patient has return of spontaneous circulation. Discussed with [facility] cardiology and patient is being transferred.
--- NOTE | 2020-06-02 01:44 | ERPHSYRPT ---
- History of Present Illness Time Seen by Provider: 06/02/20 01:14 Source: EMS Exam Limitations: clinical condition Timing/Duration: today Severity: severe Allergies/Adverse Reactions: codeine Allergy (Verified 06/03/20 07:30) Penicillins Allergy (Verified 06/03/20 07:30) Hives hydrocodone [From Lortab] Adverse Reaction (Verified 06/03/20 07:30) Nausea and Vomiting lisinopril Adverse Reaction (Verified 06/03/20 07:30) Cough Home Medications: Furosemide 20 mg [Lasix 20 mg] 40 mg PO BID 07/05/17 [History] Insulin Glargine,Hum.rec.anlog [Lantus Solostar] 50 unit SQ HS 07/05/17 [History] Losartan Potassium 50 mg [Cozaar 50 MG] 50 mg PO DAILY 07/05/17 [History] Metformin HCl 500 mg [Glucophage 500 MG] 1,000 mg PO BID 07/05/17 [History] Nifedipine [Procardia Xl] 30 mg PO DAILY 07/05/17 [History] Rosuvastatin Calcium [Crestor] 5 mg PO DAILY 07/05/17 [History] Vitamin B Complex [Super B Complex] 1 each PO HS 07/05/17 [History] Sitagliptin Phosphate [Januvia] 100 mg PO DAILY 11/21/17 [History] Amitriptyline HCl 25 mg [Elavil 25 mg] 25 mg PO HS 07/10/19 [History] Gabapentin Enacarbil [Horizant] 1,200 mg PO DAILY 10/25/19 [History] - Nursing Vital Signs Nursing Vital Signs: Initial Vital Signs Pulse Rate 107 H 06/02/20 01:48 Respiratory Rate 18 06/02/20 01:48 Blood Pressure 188/143 06/02/20 01:48 O2 Sat by Pulse Oximetry 100 06/02/20 01:48 Pain Scale Pain Intensity 0 - Physical Exam General Appearance: other (Unresponsive. Cool clammy extremities) Eye Exam: other (Pupils bilateral fixed dilated 5 mm, no scleral icterus.) Ears, Nose, Throat Exam: TMs normal Neck Exam: normal inspection, supple Respiratory Exam: diminished breath sounds Cardiovascular Exam: other (Initially pulseless and after return of spontaneous circulation has good bounding pulses) Gastrointestinal/Abdomen Exam: soft, No distention Back Exam: normal inspection Extremity Exam: pedal edema, other (Cool clammy) Neurologic Exam: other (Abnormal tone.) Skin Exam: pale SpO2 Interpretation: airway management int. O2 Delivery: Ventilator - Course EKG Interpreted by Me: RATE (61), A-fib, NORMAL AXIS, prolonged QT interval, Other (ST elevation and lead III. T wave inversion lateral leads with some ST depressions.) Ordered Tests: Medication Summary Discontinued Medications Generic Name Dose Route Start Last Admin Trade Name Freq PRN Reason Stop Dose Admin Amiodarone HCl 150 mg 06/02/20 01:15 Cordarone 150 Mg/3 Ml Injection IV 06/02/20 01:16 .STK-MED ONE Epinephrine HCl Confirm 06/02/20 01:25 Epinephrine 1mg/Ml Amp Administered 06/02/20 01:26 Dose 1 mg .ROUTE .STK-MED ONE Epinephrine HCl Confirm 06/02/20 01:16 Epinephrine 1mg/Ml Amp Administered 06/02/20 01:17 Dose 1 mg .ROUTE .STK-MED ONE Heparin Sodium (Beef Lung) 5,000 unit 06/02/20 02:12 06/02/20 02:24 Heparin 5000 Units/0.5 Ml (High Risk Med) IV 06/02/20 02:13 5,000 unit STAT ONE Administration Heparin Sodium (Beef Lung) Confirm 06/02/20 02:22 Heparin 5000 Units/0.5 Ml (High Risk Med) Administered 06/02/20 02:23 Dose 5,000 unit .ROUTE .STK-MED ONE Sodium Chloride Confirm 06/02/20 01:25 Sodium Chloride 0.9% 250 Ml Administered 06/02/20 01:26 Dose 250 mls @ ud IV .STK-MED ONE Heparin Sodium/Dextrose 25,000 units in 250 mls @ 10 mls/hr 06/02/20 02:30 06/02/20 02:24 Heparin 25,000 Units/D5w 250ml Premix IV 07/02/20 02:29 10 mls/hr .Q24H EN 10 mls/hr Administration Potassium Chloride 20 meq in 100 mls @ 50 mls/hr 06/02/20 02:13 06/02/20 02:55 Potassium Chloride 20 Meq In Water 100ml IV 06/02/20 04:12 50 mls/hr STAT ONE Administration Propofol 100 mls @ 3.087 mls/hr 06/02/20 02:00 06/02/20 02:38 Propofol 1000 Mg/100 Ml Bottle IV 07/02/20 01:59 5 mcg/kg/min .Q24H PRN 3.087 mls/hr sedation Administration Protocol 5 MCG/KG/MIN Potassium Chloride Confirm 06/02/20 02:45 Potassium Chloride 20 Meq In Water 100ml Administered 06/02/20 02:46 Dose 100 mls @ ud IV .STK-MED ONE Sodium Chloride Confirm 06/02/20 02:49 Sodium Chloride 0.9% 1000 Ml Administered 06/02/20 02:50 Dose 1,000 mls @ ud .ROUTE .STK-MED ONE Sodium Chloride Confirm 06/02/20 03:23 Sodium Chloride 0.9% 1000 Ml Administered 06/02/20 03:24 Dose 1,000 mls @ ud .ROUTE .STK-MED ONE Heparin Sodium/Dextrose Confirm 06/02/20 02:23 Heparin 25,000 Units/D5w 250ml Premix Administered 06/02/20 02:24 Dose 25,000 units in 250 mls @ ud IV .STK-MED ONE Amiodarone HCl/Dextrose Confirm 06/02/20 01:12 Nexterone 360 Mg/200 Ml Bag Administered 06/02/20 01:13 Dose 360 mg in 200 mls @ ud IV .STK-MED ONE Sodium Chloride Confirm 06/02/20 01:16 Sodium Chloride 0.9% 1000 Ml Administered 06/02/20 01:17 Dose 1,000 mls @ ud .ROUTE .STK-MED ONE Magnesium Sulfate Confirm 06/02/20 01:03 Magnesium Sulfate 1 Gm/2 Ml Vial Administered 06/02/20 01:04 Dose 2 gm .ROUTE .STK-MED ONE Propofol 5,000 mcg 06/02/20 01:15 Propofol 1000 Mg/100 Ml Bottle IV 06/02/20 01:16 .STK-MED ONE Sodium Bicarbonate 50 meq 06/02/20 01:01 Sodium Bicarbonate 50 Meq/50 Ml Vial IV 06/02/20 01:02 .STK-MED ONE Lab/Rad Data: Laboratory Result Diagrams 06/02/20 01:50 06/02/20 01:50 Laboratory Results 06/02/20 06/02/20 06/02/20 Range/Units 02:30 02:30 01:50 WBC (4.0-10.5) K/mm3 RBC (4.1-5.4) M/mm3 Hgb (12.0-16.0) gm/dl Hct (35-47) % MCV (78-100) fl MCH (26-32) pg MCHC (32-36) g/dl RDW (11.5-14.0) % Plt Count (150-450) K/mm3 MPV (7.5-11.0) fl Segmented Neutrophils (36.0-66.0) % Band Neutrophils (0.0-2.0) % Lymphocytes (Manual) (24-44) % Monocytes (Manual) (0.0-12.0) % Eosinophils (Manual) (0.00-3.0) % Platelet Estimate (NORMAL) RBC Morphology PT 11.6 (9.95-12.35) SECONDS INR 1.03 (0.8-3.0) APTT 31.0 (25.3-37.0) SECONDS Sodium (137-145) mmol/L Potassium (3.5-5.1) mmol/L Chloride (98-107) mmol/L Carbon Dioxide (22-30) mmol/L Anion Gap (5-15) MEQ/L BUN (7-17) mg/dL Creatinine (0.52-1.04) mg/dL Estimated GFR ML/MIN Glucose (74-106) mg/dL Calcium (8.4-10.2) mg/dL Total Bilirubin (0.2-1.3) mg/dL AST (14-36) U/L ALT (0-35) U/L Alkaline Phosphatase (38-126) U/L Troponin I (0.000-0.034) ng/mL NT-Pro-B Natriuret Pep (0-450) pg/mL Serum Total Protein (6.3-8.2) g/dL Albumin (3.5-5.0) g/dL Urine Color YELLOW (YELLOW) Urine Appearance CLOUDY (CLEAR) Urine pH 6.0 (5-6) Ur Specific [place] 1.025 (1.005-1.025) Urine Protein >=500 (Negative) Urine Ketones TRACE (NEGATIVE) Urine Blood LARGE (0-5) Jose F/ul Urine Nitrite NEGATIVE (NEGATIVE) Urine Bilirubin NEGATIVE (NEGATIVE) Urine Urobilinogen NEGATIVE (0-1) mg/dL Ur Leukocyte Esterase NEGATIVE (NEGATIVE) Urine WBC (Auto) 26-50 (0-5) /HPF Urine RBC (Auto) >101 (0-2) /HPF U Epithel Cells (Auto) RARE (FEW) /HPF Urine Bacteria (Auto) FEW (NEGATIVE) /HPF Urine Mucus (Auto) SLIGHT (NEGATIVE) /HPF Urine Culture Reflexed ORDERED SEPARATELY (NO) Urine Glucose >=500 (NEGATIVE) mg/dL Urine Opiates Level NEGATIVE (NEGATIVE) Ur Methadone NEGATIVE (NEGATIVE) Urine Barbiturates NEGATIVE (NEGATIVE) Ur Phencyclidine (PCP) NEGATIVE (NEGATIVE) Urine Amphetamine NEGATIVE (NEGATIVE) U Benzodiazepine Level NEGATIVE (NEGATIVE) Urine Cocaine NEGATIVE (NEGATIVE) Urine Marijuana (THC) NEGATIVE (NEGATIVE) 06/02/20 06/02/20 06/02/20 Range/Units 01:50 01:50 01:50 WBC (4.0-10.5) K/mm3 RBC (4.1-5.4) M/mm3 Hgb (12.0-16.0) gm/dl Hct (35-47) % MCV (78-100) fl MCH (26-32) pg MCHC (32-36) g/dl RDW (11.5-14.0) % Plt Count (150-450) K/mm3 MPV (7.5-11.0) fl Segmented Neutrophils (36.0-66.0) % Band Neutrophils (0.0-2.0) % Lymphocytes (Manual) (24-44) % Monocytes (Manual) (0.0-12.0) % Eosinophils (Manual) (0.00-3.0) % Platelet Estimate (NORMAL) RBC Morphology PT (9.95-12.35) SECONDS INR (0.8-3.0) APTT (25.3-37.0) SECONDS Sodium 134 L (137-145) mmol/L Potassium 3.0 L (3.5-5.1) mmol/L Chloride 98 (98-107) mmol/L Carbon Dioxide 18 L (22-30) mmol/L Anion Gap 20.6 H (5-15) MEQ/L BUN 16 (7-17) mg/dL Creatinine 0.70 (0.52-1.04) mg/dL Estimated GFR > 60.0 ML/MIN Glucose 598 H* (74-106) mg/dL Calcium 8.0 L (8.4-10.2) mg/dL Total Bilirubin 0.50 (0.2-1.3) mg/dL AST 617 H (14-36) U/L ALT 377 H (0-35) U/L Alkaline Phosphatase 106 (38-126) U/L Troponin I 0.044 H* (0.000-0.034) ng/mL NT-Pro-B Natriuret Pep 182 (0-450) pg/mL Serum Total Protein 5.4 L (6.3-8.2) g/dL Albumin 2.9 L (3.5-5.0) g/dL Urine Color (YELLOW) Urine Appearance (CLEAR) Urine pH (5-6) Ur Specific [place] (1.005-1.025) Urine Protein (Negative) Urine Ketones (NEGATIVE) Urine Blood (0-5) Jose F/ul Urine Nitrite (NEGATIVE) Urine Bilirubin (NEGATIVE) Urine Urobilinogen (0-1) mg/dL Ur Leukocyte Esterase (NEGATIVE) Urine WBC (Auto) (0-5) /HPF Urine RBC (Auto) (0-2) /HPF U Epithel Cells (Auto) (FEW) /HPF Urine Bacteria (Auto) (NEGATIVE) /HPF Urine Mucus (Auto) (NEGATIVE) /HPF Urine Culture Reflexed (NO) Urine Glucose (NEGATIVE) mg/dL Urine Opiates Level (NEGATIVE) Ur Methadone (NEGATIVE) Urine Barbiturates (NEGATIVE) Ur Phencyclidine (PCP) (NEGATIVE) Urine Amphetamine (NEGATIVE) U Benzodiazepine Level (NEGATIVE) Urine Cocaine (NEGATIVE) Urine Marijuana (THC) (NEGATIVE) 06/02/20 Range/Units 01:50 WBC 15.9 H (4.0-10.5) K/mm3 RBC 5.22 (4.1-5.4) M/mm3 Hgb 14.9 (12.0-16.0) gm/dl Hct 46.0 (35-47) % MCV 88.1 (78-100) fl MCH 28.5 (26-32) pg MCHC 32.4 (32-36) g/dl RDW 14.8 H (11.5-14.0) % Plt Count 176 (150-450) K/mm3 MPV 11.6 H (7.5-11.0) fl Segmented Neutrophils 30 L (36.0-66.0) % Band Neutrophils 1 (0.0-2.0) % Lymphocytes (Manual) 62 H (24-44) % Monocytes (Manual) 4 (0.0-12.0) % Eosinophils (Manual) 3 (0.00-3.0) % Platelet Estimate NORMAL (NORMAL) RBC Morphology NORMAL PT (9.95-12.35) SECONDS INR (0.8-3.0) APTT (25.3-37.0) SECONDS Sodium (137-145) mmol/L Potassium (3.5-5.1) mmol/L Chloride (98-107) mmol/L Carbon Dioxide (22-30) mmol/L Anion Gap (5-15) MEQ/L BUN (7-17) mg/dL Creatinine (0.52-1.04) mg/dL Estimated GFR ML/MIN Glucose (74-106) mg/dL Calcium (8.4-10.2) mg/dL Total Bilirubin (0.2-1.3) mg/dL AST (14-36) U/L ALT (0-35) U/L Alkaline Phosphatase (38-126) U/L Troponin I (0.000-0.034) ng/mL NT-Pro-B Natriuret Pep (0-450) pg/mL Serum Total Protein (6.3-8.2) g/dL Albumin (3.5-5.0) g/dL Urine Color (YELLOW) Urine Appearance (CLEAR) Urine pH (5-6) Ur Specific [place] (1.005-1.025) Urine Protein (Negative) Urine Ketones (NEGATIVE) Urine Blood (0-5) Jose F/ul Urine Nitrite (NEGATIVE) Urine Bilirubin (NEGATIVE) Urine Urobilinogen (0-1) mg/dL Ur Leukocyte Esterase (NEGATIVE) Urine WBC (Auto) (0-5) /HPF Urine RBC (Auto) (0-2) /HPF U Epithel Cells (Auto) (FEW) /HPF Urine Bacteria (Auto) (NEGATIVE) /HPF Urine Mucus (Auto) (NEGATIVE) /HPF Urine Culture Reflexed (NO) Urine Glucose (NEGATIVE) mg/dL Urine Opiates Level (NEGATIVE) Ur Methadone (NEGATIVE) Urine Barbiturates (NEGATIVE) Ur Phencyclidine (PCP) (NEGATIVE) Urine Amphetamine (NEGATIVE) U Benzodiazepine Level (NEGATIVE) Urine Cocaine (NEGATIVE) Urine Marijuana (THC) (NEGATIVE) - Progress Progress: improved, re-examined Progress Note: 06/02/20 01:31 I have initially called [facility] but is on STEMI diversion because of closed [facility]. I have called [facility] and for cardiology to call me back. 06/02/20 01:[address] Alan, reviewed patient's condition, recommended cardiology to be involved and patient is accepted for transfer. 06/02/20 02:[address] Blum shrink [facility] operator for [place], reviewed EKG findings, lab work and patient condition, do not think patient needs to go to [facility] immediately and recommended starting on heparin drip. 06/02/20 02:28 Patient has hyperglycemia but at the same time is hypokalemic. I have started her on potassium runs. I would hold off on insulin until her potassium is corrected. - Departure Departure Disposition: Transfer Clinical Impression: Cardiac arrest, Hyperglycemia, Hypokalemia Condition: Critical Critical Care Time: Yes Critical Care Time(excluding separately billable procedures): Critical 75-104 mins Referrals: DOCTOR,NO FAMILY [Primary Care Provider] -
[2020-06-02 01:50] VITALS: O2SAT 100
[2020-06-02] MEDS ORDERED: Propofol 1000 mg/100 ml Bottle 100 ML IV PRN (02:00)
[2020-06-02 02:09] LABS: Hemoglobin 14.9 gm/dl (12.0-16.0); Mean Cell Volume 88.1 fl (78-100); Mean Corpuscular Hemoglobin 28.5 pg (26-32); Mean Corpuscular Hgb Concent. 32.4 g/dl (32-36); Mean Platelet Volume 11.6 fl (7.5-11.0); Platelet Count 176 K/mm3 (150-450); Red Blood Count 5.22 M/mm3 (4.1-5.4); Red Cell Distribution Width 14.8 % (11.5-14.0); White Blood Count 15.9 K/mm3 (4.0-10.5)
[2020-06-02] MEDS ORDERED: Heparin 5000 UNITS/0.5 ML (HIGH RISK MED) IV ONE (02:12)
[2020-06-02] MEDS ORDERED: POTASSIUM CHLORIDE 20 mEq IN WATER 100ML 20 MEQ/100 ML BAG IV ONE (02:13)
[2020-06-02 02:16] LABS: ALBUMIN 2.9 g/dL (3.5-5.0); ALKALINE PHOSPHATASE 106 U/L (38-126); ANION GAP 20.6 MEQ/L (5-15); BLOOD UREA NITROGEN 16 mg/dL (7-17); CHLORIDE 98 mmol/L (98-107); Carbon Dioxide 18 mmol/L (22-30); SGOT/AST 617 U/L (14-36); SGPT/ALT 377 U/L (0-35); SODIUM 134 mmol/L (137-145); Total Protein 5.4 g/dL (6.3-8.2)
[2020-06-02 02:18] LABS: INR 1.03 (0.8-3.0); PROTIME 11.6 SECONDS (9.95-12.35)
[2020-06-02] MEDS ORDERED: Heparin 5000 UNITS/0.5 ML (HIGH RISK MED) ONE (02:22)
[2020-06-02 02:23] LABS: Glucose 598 mg/dL (74-106)
[2020-06-02] MEDS ORDERED: Heparin 25,000 units/D5W 250ML PREMIX 25,000 UNITS/250 ML BAG IV ONE (02:23)
[2020-06-02] MEDS ORDERED: Heparin 25,000 units/D5W 250ML PREMIX 25,000 UNITS/250 ML BAG IV SCH (02:30)
[2020-06-02 02:44] LABS: Appearance CLOUDY (CLEAR); Bacteria FEW /HPF (NEGATIVE); Bilirubin NEGATIVE (NEGATIVE); Blood LARGE Ery/ul (0-5); Epithelial Cells RARE /HPF (FEW); Glucose >=500 mg/dL (NEGATIVE); Ketones TRACE (NEGATIVE); Leukocyte Esterase NEGATIVE (NEGATIVE); Mucus SLIGHT /HPF (NEGATIVE); Nitrite NEGATIVE (NEGATIVE); Protein,Urine Dip >=500 (Negative); Specific Gravity 1.025 (1.005-1.025); Urobilinogen NEGATIVE mg/dL (0-1); WBC 26-50 /HPF (0-5)
[2020-06-02] MEDS ORDERED: POTASSIUM CHLORIDE 20 mEq IN WATER 100ML 100 ML IV ONE (02:45)
[2020-06-02 02:51] LABS: RBC >101 /HPF (0-2)
[2020-06-02 02:54] LABS: Amphetamine,Urine NEGATIVE (NEGATIVE); Barbiturate,Urine NEGATIVE (NEGATIVE); Benzodiazepine,Urine NEGATIVE (NEGATIVE); Cocaine,Urine NEGATIVE (NEGATIVE); Methadone,Urine NEGATIVE (NEGATIVE); Opiate,Urine NEGATIVE (NEGATIVE); PCP,Urine NEGATIVE (NEGATIVE); THC,Urine NEGATIVE (NEGATIVE)
[2020-06-02 03:36] VITALS: PULSE 71
[2020-06-02 03:44] VITALS: BP 167/121
[2020-06-02 05:26] LABS: BAND 1 % (0.0-2.0); Eosinophil 3 % (0.00-3.0); Lymphocytes 62 % (24-44); Monocyte 4 % (0.0-12.0); Neutrophils 30 % (36.0-66.0); Platelet Estimate NORMAL (NORMAL); Total Cells Counted 100
--- NOTE | 2020-06-02 08:51 | XRAY ---
Indication: Cardiac arrest with intubation. Comparison: October 25, 2019. Portable chest underinflated accentuating cardiac silhouette with new endotracheal tube tip 1 cm above the allison. No focal infiltrate, consolidation, large effusion, or pneumothorax. Bony thorax intact. Impression: Nonacute underinflated chest with endotracheal tube in situ.
== END 2020-06-02 03:45 | disposition short-term general hospital (02) ==
LOC: ED 01:14 → MERGE 01:14 → ED 03:45
DX: I46.9 Cardiac arrest, cause unspecified (principal); R73.9 Hyperglycemia, unspecified; E87.6 Hypokalemia; Z79.899 Other long term (current) drug therapy
CPT/HCPCS: 51702; 80053; 80307; 81001; 83880; 84484; 85025; 85610; 85730; 87086; 93005; 94799; 96365; 96367; 96374; 99291; 99292; P9612; 36000; 36415; 71045; 94002; 96375; 99285; J0171; J0282; J1644; J2704; J3475; J3480